=== PATIENT | male | born 1955 | race Caucasian/White ===

== ENCOUNTER 2018-12-20 08:29 | Outpatient (CLI) | payer OTHER ==
[2018-12-20 09:20] LABS: CHOLESTEROL 162 mg/dL; HDL CHOLESTEROL 41 mg/dL; LDL CHOLESTEROL,CALCULATED 110 mg/dL; LDL/HDL RATIO 2.7 (<3.6); VLDL CHOLESTEROL 11 mg/dL
[2018-12-20 09:36] LABS: ALBUMIN 4.2 g/dL (3.2-5.5); ALBUMIN/GLOBULIN RATIO 1.4 (1.0-2.2); BILIRUBIN,TOTAL 0.9 mg/dL (0.2-1.0); CALCIUM 9.6 mg/dL (8.5-10.3); TOTAL PROTEIN 7.1 g/dL (6.7-8.2)
== END 2018-12-20 08:30 | disposition home or self-care (01) ==
LOC: LAB 08:29
PROVIDERS: ATTEND Internal Medicine Cardiovascular Disease
DX: I25.10 Atherosclerotic heart disease of native coronary artery without angina pectoris (principal)
CPT/HCPCS: 36415; 80053; 80061; 83721

== ENCOUNTER 2020-02-21 09:58 | Outpatient (CLI) | payer OTHER ==
[2020-02-21 10:56] LABS: BUN - BLOOD UREA NITROGEN 20 mg/dL (6-20); CARBON DIOXIDE - CO2 26 mmol/L (21-32); CHLORIDE 104 mmol/L (101-111); SODIUM 138 mmol/L (135-145)
[2020-02-21 10:57] LABS: ALBUMIN 4.6 g/dL (3.2-5.5); ALBUMIN/GLOBULIN RATIO 1.7 (1.0-2.2); ALKALINE PHOSPHATASE 52 IU/L (42-121); ALT ALANINE AMINOTRANSFERASE 26 IU/L (10-60); AST ASPARTATE AMINOTRANSFERASE 28 IU/L (10-42); BILIRUBIN,TOTAL 0.8 mg/dL (0.2-1.0); CALCIUM 9.6 mg/dL (8.5-10.3); CHOLESTEROL 161 mg/dL; GLUCOSE 112 mg/dL (70-100); LDL CHOLESTEROL,CALCULATED 106 mg/dL; TOTAL PROTEIN 7.3 g/dL (6.7-8.2); VLDL CHOLESTEROL 20 mg/dL
[2020-02-21 10:58] LABS: CHOL/HDL RATIO 4.6 (<5.0); HDL CHOLESTEROL 35 mg/dL
== END 2020-02-21 09:59 | disposition home or self-care (01) ==
LOC: LAB 09:58
PROVIDERS: ATTEND Nurse Practitioner Family
DX: I25.10 Atherosclerotic heart disease of native coronary artery without angina pectoris (principal)
CPT/HCPCS: 36415; 80053; 80061; 83721